=== PATIENT | male | born 1995 | race American Indian/Alaskan Native ===

== ENCOUNTER 2020-07-29 10:38 | Emergency (ER) | payer MEDICAID ==
[2020-07-29 10:45] VITALS: BP 158/72
--- NOTE | 2020-07-29 11:30 | Emergency Department Report ---
- General Chief complaint: Skin/Abscess/Foreign Body Stated complaint: ABSCESS UNDER ARM Time Seen by Provider: 07/29/20 11:24 Source: patient Mode of arrival: Ambulatory Limitations: No Limitations - History of Present Illness Initial comments: Patient is a 24-year-old male presents emergency room complaints of a left axillary abscess that began 4 days ago. He states that it has been increasing in size and causing him more discomfort. He denies any drainage, fever, vomiting. He denies getting bit by anything or any abrasions. He states that he has had abscesses a few times in the past. He states that he last had a I&D performed approximately 3 months ago. He denies any other past medical history. He states he has an allergy to Bactrim. - Related Data Previous Rx's Medication Instructions Recorded Last Taken Type cephALEXin [Keflex] 500 mg PO QID 7 Days #28 capsule 07/29/20 Unknown Rx Allergies Allergy/AdvReac Type Severity Reaction Status Date / Time sulfamethoxazole Allergy Rash Verified 07/29/20 10:42 [From Bactrim] trimethoprim [From Bactrim] Allergy Rash Verified 07/29/20 10:42 Abscess Boil HPI - HPI Chief Complaint: Skin/Abscess/Foreign Body Stated Complaint: ABSCESS UNDER ARM Time Seen by Provider: 07/29/20 11:24 Home Medications: Previous Rx's Medication Instructions Recorded Last Taken Type cephALEXin [Keflex] 500 mg PO QID 7 Days #28 capsule 07/29/20 Unknown Rx Allergies/Adverse Reactions: Allergies Allergy/AdvReac Type Severity Reaction Status Date / Time sulfamethoxazole Allergy Rash Verified 07/29/20 10:42 [From Bactrim] trimethoprim [From Bactrim] Allergy Rash Verified 07/29/20 10:42 ED Review of Systems ROS: Stated complaint: ABSCESS UNDER ARM Other details as noted in HPI Comment: All other systems reviewed and negative ED Past Medical Hx - Past Medical History Previous Medical History?: No - Surgical History Past Surgical History?: No - Social History Smoking Status: Never Smoker Substance Use Type: None - Medications Home Medications: Home Medications Medication Instructions Recorded Confirmed Last Taken Type cephALEXin [Keflex] 500 mg PO QID 7 Days #28 capsule 07/29/20 Unknown Rx ED Physical Exam - General Limitations: No Limitations General appearance: alert, in no apparent distress - Head Head exam: Present: atraumatic, normocephalic - Eye Eye exam: Present: normal appearance - ENT ENT exam: Present: mucous membranes moist - Neurological Exam Neurological exam: Present: alert, oriented X3 - Psychiatric Psychiatric exam: Present: normal affect, normal mood - Skin Skin exam: Present: warm, dry, other (3 cm area of induration with small amount of central fluctuance, no surrounding erythema, no drainage, no opening, no necrosis, no skin denuding) ED Course Vital Signs 07/29/20 10:44 Temperature 98.9 F Pulse Rate 82 Respiratory 20 Rate Blood Pressure 158/72 O2 Sat by Pulse 98 Oximetry - I & D Left Arm Type of Procedure: Simple Site: left axilla Blade Size: 11 I & D Procedure: betadine prep, sterile drapes applied, sterile dressing applied Progress: Betadine prep used, 6 cc of 1% lidocaine with epinephrine used as anesthetic, Betadine prep again, sterile drapes applied, 1 cm incision made with an 11 blade, mild to moderate amount of thick white material, irrigated with saline, iodoform gauze placed, patient tolerated well, no complications, bleeding controlled, sterile dressing applied ED Medical Decision Making - Medical Decision Making Patient is a 24-year-old male presents emergency room complaints of a left axillary abscess that began 4 days ago. He states that it has been increasing in size and causing him more discomfort. He denies any drainage, fever, vomiting. He denies getting bit by anything or any abrasions. He states that he has had abscesses a few times in the past. He states that he last had a I&D performed approximately 3 months ago. He denies any other past medical history. He states he has an allergy to Bactrim. VSS. on exam: 3 cm area of induration with small amount of central fluctuance, no surrounding erythema, no drainage, no opening, no necrosis, no skin denuding. I&D performed per procedure note without complications. pt given prescription for keflex. advised pt Please take medication as prescribed. Please return to the emergency room in 2 days to have packing removed and reassessment. Please keep area clean, dry, covered. May wash around area with soap and water and pat dry. No hot tub, no pool, no soaking in water. Showering is fine. Follow-up with a primary care doctor for reexamination. Return to emergency room for any new or worsening symptoms. - Differential Diagnosis abscess, cellulitis, sebaceous cyst, folliculitis Critical care attestation.: If time is entered above; I have spent that time in minutes in the direct care of this critically ill patient, excluding procedure time. ED Disposition Clinical Impression: Abscess of left axilla Disposition: TO HOME OR SELFCARE Is pt being admited?: No Does the pt Need Aspirin: No Condition: Stable Instructions: Abscess Incision and Drainage (ED) Additional Instructions: Please take medication as prescribed. Please return to the emergency room in 2 days to have packing removed and reassessment. Please keep area clean, dry, covered. May wash around area with soap and water and pat dry. No hot tub, no pool, no soaking in water. Showering is fine. Follow-up with a primary care doctor for reexamination. Return to emergency room for any new or worsening symptoms. Prescriptions: cephALEXin [Keflex] 500 mg PO QID 7 Days #28 capsule Referrals: TANG PAZ MD [Primary Care Provider] - 2-3 Days ANGELICA ARREDONDO MD [Staff Physician] - 2-3 Days [facility] [Provider Group] - 2-3 Days Time of Disposition: 12:47 Print Language: MACEDONIAN
[2020-07-29] MEDS ORDERED: LIDOCAINE (1%) 10 MG/1 ML VIAL 20 ML MDV INFILTRATI ONE (12:27)
== END 2020-07-29 13:08 | disposition home or self-care (01) ==
LOC: ED 10:38
DX: L02.412 Cutaneous abscess of left axilla (principal); Z79.899 Other long term (current) drug therapy; Z88.8 Allergy status to other drugs, medicaments and biological substances
CPT/HCPCS: 99282

== ENCOUNTER 2020-07-31 14:58 | Emergency (ER) | payer MEDICAID ==
[2020-07-31 15:10] VITALS: BP 136/73
--- NOTE | 2020-07-31 17:43 | Emergency Department Report ---
ED Recheck HPI - General Chief Complaint: Laceration/Recheck/Suture Stated Complaint: LEFT ARMPIT PACKING Time Seen by Provider: 07/31/20 17:34 Source: patient Mode of arrival: Ambulatory Limitations: No Limitations - History of Present Illness Initial Comments: 24-year-old -Russian male presents to the emergency room for packing removal from the left axillary. Patient states he was on 07/29/2020 for an abscess it was drained and packed. Patient was placed on Keflex which he reports he is taking and states that he feels much better. Patient denies any fever chills. Complaint: wound re-check Onset/Timin -: days(s) Initial Visit For: abscess (Left axillary) - Related Data Previous Rx's Medication Instructions Recorded Last Taken Type cephALEXin [Keflex] 500 mg PO QID 7 Days #28 capsule 07/29/20 Unknown Rx Allergies Allergy/AdvReac Type Severity Reaction Status Date / Time sulfamethoxazole Allergy Rash Verified 07/29/20 10:42 [From Bactrim] trimethoprim [From Bactrim] Allergy Rash Verified 07/29/20 10:42 ED Review of Systems ROS: Stated complaint: LEFT ARMPIT PACKING Other details as noted in HPI ED Past Medical Hx - Past Medical History Previous Medical History?: Yes Additional medical history: Left arm boil - Surgical History Past Surgical History?: No - Social History Smoking Status: Never Smoker - Medications Home Medications: Home Medications Medication Instructions Recorded Confirmed Last Taken Type cephALEXin [Keflex] 500 mg PO QID 7 Days #28 capsule 07/29/20 Unknown Rx ED Physical Exam - General Limitations: No Limitations General appearance: alert, in no apparent distress - Head Head exam: Present: atraumatic, normocephalic - ENT ENT exam: Present: mucous membranes moist - Neurological Exam Neurological exam: Present: alert, oriented X3 - Psychiatric Psychiatric exam: Present: normal affect, normal mood - Skin Skin exam: Present: warm, dry, intact, normal color, other (Packing removal from left axillary nonerythematous nonedematous no tenderness to palpate.) ED Course Vital Signs 07/31/20 15:07 Temperature 97.6 F Pulse Rate 77 Respiratory 20 Rate Blood Pressure 136/73 O2 Sat by Pulse 97 Oximetry ED Recheck [facility] - Medical Decision Making 24-year-old -Russian male presents to the emergency room for packing removal from the left axillary. Patient states he was on 07/29/2020 for an abscess it was drained and packed. Patient was placed on Keflex which he reports he is taking and states that he feels much better. Patient denies any fever chills. Packing room removed clean bandage placed. Instructions to continue with antibiotics use chlorhexidine or Dial soap to wash underarms and private area. Referral placed for dermatology. Critical care attestation.: If time is entered above; I have spent that time in minutes in the direct care of this critically ill patient, excluding procedure time. ED Disposition Clinical Impression: Abscess packing removal Disposition: DC-01 TO HOME OR SELFCARE Is pt being admited?: No Does the pt Need Aspirin: No Condition: Stable Additional Instructions: Recommend bathing with antibacterial soap such as Dial or mixed chlorhexidine surgical scrub with your body wash to wash into your arms and groin area to to decrease bacteria on the skin. Continue with your antibiotics as prescribed. Follow-up with a learning designer if this becomes a reoccurrence. Referrals: [facility] [Provider Group] - 3-5 Days
== END 2020-07-31 17:50 | disposition home or self-care (01) ==
LOC: ED 14:58
DX: L02.412 Cutaneous abscess of left axilla (principal); Z48.00 Encounter for change or removal of nonsurgical wound dressing; Z79.899 Other long term (current) drug therapy; Z88.8 Allergy status to other drugs, medicaments and biological substances

== ENCOUNTER 2020-08-19 20:14 | Emergency (ER) | payer MEDICAID | END 2020-08-19 20:30 | disposition left against medical advice (07) | LOC: ED 20:14 | DX: M54.2 Cervicalgia (principal); M79.606 Pain in leg, unspecified; Z53.21 Procedure and treatment not carried out due to patient leaving prior to being seen by health care provider ==

== ENCOUNTER 2020-09-06 23:07 | Emergency (ER) | payer MEDICAID ==
[2020-09-06 23:46] VITALS: BP 141/73
[2020-09-07] MEDS ORDERED: dexAMETHasone 20 MG/5 ML VIAL IM ONE (02:16)
[2020-09-07] MEDS ORDERED: KETOROLAC 30 MG/1 ML INJ IM ONE (02:16)
[2020-09-07] MEDS ORDERED: ACETAMINOPHEN 500 MG TAB PO ONE (02:17)
--- NOTE | 2020-09-07 02:49 | Emergency Department Report ---
ED Back Pain/Injury HPI - General Chief Complaint: Back Pain/Injury Stated Complaint: RT SIDE LEFT PAIN AND NUMBNESS Source: patient Limitations: No Limitations - History of Present Illness Initial Comments: Patient is a 24-year-old -[place] male with no past medical history presents to the ED with complaint of acute onset persistent severe nontraumatic low back pain that radiates to the right leg for the last 1 month, worse in the last 1 week. Patient states that the pain has been persistent and worse with ambulation but also now now pronounced when he lays down. Patient denies fall, testicular pain, hematuria, dysuria, traumatic injury, heavy lifting, chest pain, shortness of breath, abdominal pain, nausea and vomiting, bilateral lower extremity weakness, numbness and tingling, urinary or bowel incontinence saddle paresthesia. MD Complaint: back pain (lower) -: Gradual, month(s) (1) Similar Symptoms Previously: Yes Place: home Radiation: right leg Severity: severe Severity scale (0 -10): 8 Quality: sharp, aching Consistency: constant Improves With: none Worsens With: movement Context: other (spontaneous) Associated Symptoms: denies other symptoms. denies: confusion, weakness, chest pain, numbness, difficulty walking, cough, difficulty urinating, diaphoresis, incontinence, fever/chills, headaches, abdominal pain, nausea/vomiting, seizure, shortness of breath - Related Data Previous Rx's Medication Instructions Recorded Last Taken Type cephALEXin [Keflex] 500 mg PO QID 7 Days #28 capsule 07/29/20 Unknown Rx Ibuprofen [Motrin] 800 mg PO Q8HR PRN #30 tablet 09/07/20 Unknown Rx methOCARBAMOL [Robaxin TAB] 750 mg PO Q8H PRN #24 tablet 09/07/20 Unknown Rx predniSONE [Deltasone] 60 mg PO QDAY #15 tab 09/07/20 Unknown Rx traMADoL [Ultram] 50 mg PO Q6HR PRN #12 tablet 09/07/20 Unknown Rx Allergies Allergy/AdvReac Type Severity Reaction Status Date / Time sulfamethoxazole Allergy Rash Verified 07/29/20 10:42 [From Bactrim] trimethoprim [From Bactrim] Allergy Rash Verified 07/29/20 10:42 ED Review of Systems ROS: Stated complaint: RT SIDE LEFT PAIN AND NUMBNESS Other details as noted in HPI Constitutional: denies: chills, fever Eyes: denies: eye pain, eye discharge, vision change ENT: denies: ear pain, throat pain Respiratory: denies: cough, shortness of breath, wheezing Cardiovascular: denies: chest pain, palpitations Endocrine: no symptoms reported Gastrointestinal: denies: abdominal pain, nausea, diarrhea Genitourinary: denies: urgency, dysuria Musculoskeletal: back pain (lower back pain), arthralgia (low back pain that radiates to the right hip and lower leg). denies: joint swelling Skin: denies: rash, lesions Neurological: denies: headache, weakness, paresthesias Psychiatric: denies: anxiety, depression Hematological/Lymphatic: denies: easy bleeding, easy bruising ED Past Medical Hx - Past Medical History Previous Medical History?: No Additional medical history: Left arm boil - Surgical History Past Surgical History?: No - Social History Smoking Status: Never Smoker Substance Use Type: None - Medications Home Medications: Home Medications Medication Instructions Recorded Confirmed Last Taken Type cephALEXin [Keflex] 500 mg PO QID 7 Days #28 capsule 07/29/20 Unknown Rx Ibuprofen [Motrin] 800 mg PO Q8HR PRN #30 tablet 09/07/20 Unknown Rx methOCARBAMOL [Robaxin TAB] 750 mg PO Q8H PRN #24 tablet 09/07/20 Unknown Rx predniSONE [Deltasone] 60 mg PO QDAY #15 tab 09/07/20 Unknown Rx traMADoL [Ultram] 50 mg PO Q6HR PRN #12 tablet 09/07/20 Unknown Rx ED Physical Exam - General Limitations: No Limitations General appearance: alert, in no apparent distress - Head Head exam: Present: atraumatic, normocephalic, normal inspection - Eye Eye exam: Present: normal appearance, PERRL, EOMI Pupils: Present: normal accommodation - ENT ENT exam: Present: normal exam, normal orophraynx, mucous membranes moist, TM's normal bilaterally, normal external ear exam - Neck Neck exam: Present: normal inspection, full ROM - Respiratory Respiratory exam: Present: normal lung sounds bilaterally. Absent: respiratory distress, wheezes, rales, rhonchi, chest wall tenderness, accessory muscle use, decreased breath sounds, prolonged expiratory - Cardiovascular Cardiovascular Exam: Present: regular rate, normal rhythm, normal heart sounds. Absent: systolic murmur, diastolic murmur, rubs, gallop - GI/Abdominal GI/Abdominal exam: Present: soft, normal bowel sounds. Absent: tenderness, guarding, rebound, hyperactive bowel sounds, hypoactive bowel sounds, organomegaly - Extremities Exam Extremities exam: Present: normal inspection, full ROM, tenderness (Palpable right hip and right lower leg tenderness), normal capillary refill. Absent: pedal edema, joint swelling - Back Exam Back exam: Present: normal inspection, full ROM, tenderness (Palpable lumbosacral paraspinal musculoskeletal tenderness), muscle spasm, paraspinal ten derness. Absent: CVA tenderness (R), CVA tenderness (L), vertebral tenderness - Neurological Exam Neurological exam: Present: alert, oriented X3, CN II-XII intact, normal gait, reflexes normal - Psychiatric Psychiatric exam: Present: normal affect, normal mood - Skin Skin exam: Present: warm, dry, intact, normal color. Absent: rash ED Course Vital Signs 09/06/20 23:40 Temperature 98.5 F Pulse Rate 85 Respiratory 15 Rate Blood Pressure 141/73 O2 Sat by Pulse 96 Oximetry ED Medical Decision Making - Medical Decision Making This is a 24-year-old -[place] male with no past medical history presents to the ED with complaint of acute onset persistent severe nontraumatic low back pain that radiates to the right leg for the last 1 month, worse in the last 1 week. Patient states that the pain has been persistent and worse with ambulation but also now now pronounced when he lays down. In the ED, patient is alert and oriented x3 and is not in distress. Patient was treated for pain in the ED and on reevaluation, patient pain is well controlled medications. Patient was discharged home on medications and advised to follow-up with his primary care physician in 5 to 7 days for reevaluation or return to the ED immediately if symptoms get worse. - Differential Diagnosis Muscle spasm; sciatica; lumbago; muscle strain; Critical care attestation.: If time is entered above; I have spent that time in minutes in the direct care of this critically ill patient, excluding procedure time. ED Disposition Clinical Impression: Spasm of muscle of lower back Acute low back pain with right-sided sciatica Qualifiers: Back pain laterality: right Qualified Code(s): M54.41 - Lumbago with sciatica, right side Disposition: DC-01 TO HOME OR SELFCARE Is pt being admited?: No Does the pt Need Aspirin: No Condition: Stable Instructions: Lumbar Radiculopathy (ED), Sciatica (ED), Muscle Spasm (ED), Acute Low Back Pain (ED) Additional Instructions: Take medication with food, drink plenty of fluids and follow-up with your [facility] physician in 7 to 10 days for reevaluation. Return to the ED immediately if symptoms get worse. Prescriptions: predniSONE [Deltasone] 60 mg PO QDAY #15 tab Ibuprofen [Motrin] 800 mg PO Q8HR PRN #30 tablet PRN Reason: Pain , Severe (7-10) methOCARBAMOL [Robaxin TAB] 750 mg PO Q8H PRN #24 tablet PRN Reason: Muscle Spasm traMADoL [Ultram] 50 mg PO Q6HR PRN #12 tablet PRN Reason: Pain Referrals: [facility] [Provider Group] - 7-10 days Time of Disposition: 02:48 Print Language: DANISH
== END 2020-09-07 03:00 | disposition home or self-care (01) ==
LOC: ED 23:07
DX: M54.41 Lumbago with sciatica, right side (principal); M62.830 Muscle spasm of back; Z79.1 Long term (current) use of non-steroidal anti-inflammatories (NSAID); Z79.899 Other long term (current) drug therapy; Z88.8 Allergy status to other drugs, medicaments and biological substances
CPT/HCPCS: 96372; 99282; J1100; J1885

== ENCOUNTER 2020-10-25 19:38 | Emergency (ER) | payer MEDICAID ==
[2020-10-25 20:21] VITALS: BP 145/75
== END 2020-10-25 22:28 | disposition left against medical advice (07) ==
LOC: ED 19:38
DX: R05 Cough (principal); R07.89 Other chest pain; R51.9 Headache, unspecified; Z53.21 Procedure and treatment not carried out due to patient leaving prior to being seen by health care provider